=== PATIENT | female | born 1955 | race Caucasian/White ===

== ENCOUNTER 2021-12-21 15:32 | Emergency (ER) | payer MEDICARE, OTHER, SELFPAY ==
[2021-12-21 15:52] VITALS: BP 137/67; PULSE 96; RESP 18; TEMP 36.4; O2SAT 99; BMI 21.9
[2021-12-21 17:39] VITALS: BP 130/60; PULSE 74; RESP 18; O2SAT 98
--- NOTE | 2021-12-21 19:45 | ED_ITS ---
HPI - Dental/Oral <HANNAH Moreira - Last Filed: 12/21/21 19:51> General Chief complaint: Dental/Oral Stated complaint: swollen rt jaw Time Seen by Provider: 12/21/21 17:03 Source: patient Mode of arrival: Ambulatory History of Present Illness HPI Narrative: This is a 66-year-old female presents to the emergency department with 4 days of left-sided cheek swelling and reports that she had dental pain on the right side approximately 2 weeks ago but does not feel any relation. She denies any fever, fatigue, chills, difficulty swallowing, denies any history of diabetes, is not anticoagulants, and denies any significant medical history. Patient denies any pain over her TMJ joint, denies chewing pain, states that the swelling is in between her TMJ joint, her cheekbone and her lower jaw. She states that she now has a swollen lymph node or tenderness on her anterior neck. Related Data Previous Rx's Medication Instructions Recorded amoxicillin 875 mg-potassium 1 tab PO BID 10 days #20 tabs 12/21/21 clavulanate 125 mg tablet Review of Systems <HANNAH Moreira - Last Filed: 12/21/21 19:51> Review of Systems Narrative: General: denies fever, chills, malaise, sweats, fatigue Head/Neck: denies headache, neck pain, dizziness, endorses facial swelling and tenderness on the left side over her cheek Eyes: denies visual changes, eye pain Cardio: denies chest pain, palpitations, edema Respiratory: denies dyspnea, cough, orthopnea GI: denies abdominal pain, nausea, vomiting, or diarrhea : denies dysuria, hematuria, urinary retention, frequency or incontinence MSK: denies joint pain, muscle weakness Skin: denies rash, itching, skin lesions or other Neuro: denies numbness, tingling Patient History <HANNAH Moreira - Last Filed: 12/21/21 19:51> Social History Smoking Status: Current every day smoker Smoking Status: Current every day smoker alcohol intake frequency: 0-2 drinks per day Substance Use Type: does not use Exam <HANNAH Moreira - Last Filed: 12/21/21 19:51> Narrative Exam Narrative: Independently reviewed vitals signs and nursing notes. General: cooperative, comfortable, in no acute distress, well groomed Head: atraumatic, symmetrical facial expressions, no erythema to her skin on her face, left cheek has palpable density, it is over her parotid gland, no tenderness over her left TMJ, opening and closing her jaw without deficit or pain, no fluctuance or oral wound, patient states that it is better after she sucks on sour candies and warm compresses have been helpful. No submental edema or tenderness. Neck: supple, mild anterior cervical lymphadenopathy, on the left, nodes less than 1 cm and only 2 or palpable Eyes: equal round and reactive, EOMI, conjunctiva normal Nose: nares patent, no rhinorrhea Mouth/Throat: moist mucus membranes no intraoral involvement or wound Cardiovascular: regular rate and rhythm, no peripheral edema, warm extremities Respiratory: normal effort, able to speak in complete sentences, no audible wheezing, stridor, or rales. No retractions or tachypnea. GI: abdomen soft, nontender to palpation, nondistended, no masses, no exquisite tenderness with exam, without guarding or rebound. MSK: moves all extremities, neurovascularly intact, no weakness, normal tone Skin: brisk capillary refill, no rash, no erythema Neuro: normal speech and cognition, A&O x3 Psych: mental status is grossly normal, congruent mood, normal affect, pleasant and cooperative Initial Vital Signs Initial Vital Signs: Vital Signs Temperature 97.6 F 12/21/21 15:52 Pulse Rate 96 H 12/21/21 15:52 Respiratory Rate 18 12/21/21 15:52 Blood Pressure 137/67 12/21/21 15:52 Pulse Oximetry 99 12/21/21 15:52 Oxygen Delivery Method 12/21/21 15:52 <Abbi Mccoy DO - Last Filed: 12/26/21 03:41> Initial Vital Signs Initial Vital Signs: Vital Signs Temperature 97.6 F 12/21/21 15:52 Pulse Rate 96 H 12/21/21 15:52 Respiratory Rate 18 12/21/21 15:52 Blood Pressure 137/67 12/21/21 15:52 Pulse Oximetry 99 12/21/21 15:52 Oxygen Delivery Method 12/21/21 15:52 Course <RadhaHANNAH Green - Last Filed: 12/21/21 19:51> Vital Signs Vital signs: Vital Signs - 8 hr 12/21/21 15:52 12/21/21 17:39 Temperature 97.6 F Pulse Rate 96 H 74 Respiratory Rate 18 18 Blood Pressure 137/67 130/60 Pulse Oximetry 99 98 Oxygen Delivery Method Room Air <Abbi Mccoy DO - Last Filed: 12/26/21 03:41> Vital Signs Vital signs: Vital Signs - 8 hr 12/21/21 15:52 12/21/21 17:39 Temperature 97.6 F Pulse Rate 96 H 74 Respiratory Rate 18 18 Blood Pressure 137/67 130/60 Pulse Oximetry 99 98 Oxygen Delivery Method Room Air MDM - Dental/Oral <RadhaHANNAH Green - Last Filed: 12/21/21 19:51> MDM Narrative Medical decision making narrative: This is a 66-year-old female presents to the emergency department with concern of left cheek swelling over the last 4 days now with anterior cervical lymph node involvement and concern for infection. On exam, patient does not have any TMJ tenderness, she can open and close her jaw without any pain or symptoms, her left cheek is edematous with a firm density over the parotid gland, this is most likely parotitis, patient has been sucking on sour candies which she thinks has been helpful. This could also be an abscess or cellulitis or other peritonsillar infection but this is on her face, not her posterior pharynx and there is no surrounding erythema or signs of cellulitis. She does not have any dental pain on the left side, no gingivitis or dental caries. Encourage patient to continue with warm compresses, she was prescribed Augmentin b.i.d. for the next 10 days with concern for parotitis, encouraged to continue with sour candies, and to return to the emergency department for any worsening of this facial swelling, fever, systemic symptoms of illness including fatigue, worsening swelling where she can not open or close her jaw, or any oropharyngeal involvement. She was given contact information for Dr. Wallace to follow-up with, this could be a parotid stone, or other infectious etiology. There was no drainage or fluctuance. Patient is appropriate and amenable to discharge home. Vital signs are stable on repeat examination is unremarkable. Patient has been informed of results. Patient has been given strict return to ER precautions for any new or worsening symptoms. Patient understands to follow up closely with outpatient providers as instructed. Patient understands plan and agrees to discharge home. All questions and concerns answered at this time. Discharge Plan Departure Patient Disposition: Home Clinical Impression: Left facial swelling Instructions: DI for Parotitis-Adult Activity Restrictions/Additional Instructions: *You have been diagnosed with left-sided facial swelling which is most likely parotitis, please continue with your sour candies as this can be quite helpful, and please start taking the antibiotics twice a day for the next 10 days per the recommendations. Thank you for trusting us with your care and coming in for evaluation, this will hopefully prevent any worsening infection and hopefully avoid hospitalization and IV antibiotics. Please come back to the emergency department if you develop any worsening pain, swelling, fevers, or if you are having difficulty opening your mouth due to swelling. Thank you for trusting us with your care, if this does not start to improve in the next 1-2 days easily, please follow-up with ENT and call to make an appointment with Dr. Wallace. *What to do: *Please continue to take your regular medications as directed. [ x] New medication prescriptions sent to your pharmacy: [ [facility]] [ ] New medication written as a paper prescription [ ] No new medications given *Please follow up with your primary care provider in 2-3 days, call for an appointment. Let them know you were seen in the Emergency Department and that we asked that you be seen for follow-up. We will electronically transmit a record of today's note if your PCP is in our system *If you do not have a primary care provider please contact [phone] to [facility] with one of the [facility] primary care providers. *Return to Emergency Department if you should have any new, worsening, or concerning symptoms, such as [fever greater than 101F, chills, worsening pain, persistent vomiting or other bothersome symptoms]. Prescriptions: New amoxicillin-pot clavulanate 875-125 mg tablet 1 tab PO BID 10 Days Qty: 20 0RF Referrals: Bassam Wallace MD [Physician] - Visit Report Forms: Patient Portal/API <Abbi Mccoy DO - Last Filed: 12/26/21 03:41> Cosign ED Attending Cosignature Attestation: I was immediately available in the department for consultation. Documentation has been reviewed.
== END 2021-12-21 17:44 | disposition home or self-care (01) ==
PROVIDERS: Emergency Provider Nurse Practitioner Critical Care Medicine
DX: R22.0 Localized swelling, mass and lump, head (principal)
CPT/HCPCS: 99281